=== PATIENT | male | born 1985 | race Caucasian/White ===

== ENCOUNTER 2017-01-10 16:21 | Emergency (ER) | payer OTHER ==
--- NOTE | 2017-01-10 17:15 | DIAGNOSTIC IMAGING REPORT ---
PROCEDURE: XR CHEST 2 VIEW INDICATION: CHEST PAIN TECHNIQUE: PA and lateral views. COMPARISON: None. FINDINGS: Allowing for overlying wires and electrodes, lungs are clear. Heart and mediastinum are normal. Thorax is normal. IMPRESSION: 1. Negative chest.
--- NOTE | 2017-01-10 17:43 | ED ORDER SUMMARY ---
..... Patient: DANIELLE LEUNG OrderSheet [facility] VisitID: [id number] [address] [place] [address] 31y, M Registration Date/Time: 01/10/2017 ORDER SHEET Weight: 86.1 kg (stated) Allergies: No Known Drug Allergy GENERAL ORDERS: Cardiac Panel Stat (16:51 01/10/2017 EBonham per protocol) (16:51 EBonham) EKG - ER Stat (16:51 01/10/2017 EBonham per protocol) (16:55 ALawrence ER Tech1) Chest 2V Urgent (17:00 01/10/2017 SThom A.R.N.P.) (Ack 17:01 ALawrence ER Tech1) (17:14 Delfino) Cardiac Panel Stat (17:00 01/10/2017 SThom A.R.N.P.) (Cancelled: Other17:00 SThom A.R.N.P.) TSH Urgent (17:00 01/10/2017 SThom A.R.N.P.) (Ack 17:01 ALawrence ER Tech1) (17:58 ALawrence ER Tech1) MEDICATION ORDERS: KCl PO 20 meq (NOW) (17:41 01/10/2017 SThom A.R.N.P.) (Cancelled: pt gone19:28 Lizy Zapien) IV FLUIDS: ORDER SHEET NOTES: [Electronically signed by Sally Torres R.N. (19:29 01/10/2017)] [Electronically signed by Coral Ramos A.R.N.P. (20:49 01/10/2017)] [Electronically locked/signed by Sally Torres R.N. (19:29 01/10/2017)]
--- NOTE | 2017-01-10 17:43 | ED CLINICAL REPORT ---
Clinical Report - Physicians/Mid Levels [facility] [address] [place] [address] 01/10/2017 16:23 Patient: DANIELLE LEUNG Time Seen: 16:53. Arrived- By private vehicle. Historian- patient. HISTORY OF PRESENT ILLNESS Chief Complaint: CHEST DISCOMFORT. Modifying factors. Not worsened by anything. Not relieved by anything. It is described as pressure. No radiation. This started episode 1 week ago-resolved, happened again today; Made appt w/ PCP -01/18 and is now gone. No nausea, vomiting or difficulty breathing. Similar symptoms previously: Once. Recent medical care: Not recently seen/assessed. REVIEW OF SYSTEMS No fever, chills, cough, calf pain or abdominal pain. PAST HISTORY See nurses notes. Hx of aortic disease (aneurysm or dissection, sounds like) in father (cause of ) and uncle (A&W). No history of coronary artery disease, heart disease, lung disease, hypertension or hyperlipidemia. No history of diabetes mellitus. SOCIAL HISTORY Former smoker. Occasional alcohol use. History of occasional drug use: marijuana. ADDITIONAL NOTES The nursing notes have been reviewed. PHYSICAL EXAM Vital Signs: 01/10/2017 18:00 BP: 131/75. HR: 77. RR: 20. O2 saturation: 100%. Pain level now: 0/10. 01/10/2017 16:28 BP: 145/83. HR: 90. RR: 22. O2 saturation: 100%. Temp: 97.9 F. Pain level now: 2/10. Have been reviewed and appear to be correct. Appearance: Alert. Oriented X3. No acute distress. Eyes: Pupils equal, round and reactive to light. Eyes normal inspection. Neck: Normal inspection. Neck supple. CVS: Normal heart rate and rhythm. Heart sounds normal. Respiratory: No respiratory distress. Breath sounds normal. Chest nontender. Abdomen: Soft and nontender. Skin: Skin warm and dry. Normal skin color. Normal skin turgor. Extremities: Extremities exhibit normal ROM. No lower extremity edema. Neuro: Oriented X 3. LABS, X-RAYS, AND EKG EKG: Normal EKG. Laboratory Tests: Laboratory tests have been ordered, with results reviewed and considered in the medical decision making process. CBC w Diff: (CATE: 01/10/2017 16:38) ( [facility] 01/10/2017 17:06) Final results Test Result Flag Units (Reference) WHITE BLOOD COUNT 10.4 K/uL (4.5-11.5) RED BLOOD COUNT 4.90 M/uL (4.50-5.90) HEMOGLOBIN 15.4 gm/dL (13.5-17.5) HEMATOCRIT 45.0 % (41.0-53.0) MEAN CELL VOLUME 92 fL (80-100) MEAN CORPUSCULAR HGB 32 pg (26-34) MEAN CORPUSCULAR HGB CONC 34 g/dL (31-37) RED CELL DISTRIBUTION WIDTH 13.4 % (11.6-14.8) PLATELET COUNT 265 K/uL (150-400) NEUTROPHIL % 55.0 % (50-75) LYMPH % 36.0 % (25-40) MONO % 7.2 % (3-14) EOSINOPHIL % 1.4 % (0-4) BASOPHIL % 0.4 % (0-2) TSH: (CATE: 01/10/2017 16:38) ( [facility] 01/10/2017 17:29) Final results Test Result Flag Units (Reference) THYROID STIMULATING HORMONE 1.953 uIU/mL (0.34-3.74) CHEM 13 PANEL: (CATE: 01/10/2017 16:38) ( [facility] 01/10/2017 17:27) Final results Test Result Flag Units (Reference) GLUCOSE 105 mg/dL (70-110) BUN 17 mg/dL (7-18) CREATININE 1.0 mg/dL (0.6-1.3) Estimated GFR >60 mL/min Estimated GFR- >60 mL/min Note: Persistent reduction over 3 months in eGFR<60 mL/min/1.73 m2 defines CKD. Patients with eGFR values>=60 mL/min/1.73 m2 may also have CKD if evidence ofpersistent proteinuria. Additional information may be foundat www.kidney.org. SODIUM 140 mmol/L (136-145) POTASSIUM 3.3 L mmol/L (3.5-5.1) CHLORIDE 101 mmol/L (98-107) CARBON DIOXIDE 27 mmol/L (21-32) CALCIUM 8.8 mg/dL (8.5-10.1) TOTAL PROTEIN 7.9 g/dL (6.4-8.2) ALBUMIN 4.4 g/dL (3.3-5.0) BILIRUBIN, TOTAL 0.5 mg/dL (0.0-1.0) ALKALINE PHOSPHATASE 63 U/L (46-116) AST (SGOT) 19 U/L (15-37) ALT (SGPT) 45 U/L (12-78) MAGNESIUM 2.1 mg/dL (1.8-2.4) CPK 131 U/L (24-260) TROPONIN I 0.08 ng/mL (0.00-1.5) TROPONIN REFERENCE RANGE:<0.1 NEGATIVE0.1-1.5 INDETERMINANT>1.5 POSITIVE . Note - Tests: (rev w/ DAYO Godwin). PROGRESS AND PROCEDURES Course of Care: Reassuring exam, EKG,labs. Patient has followup available. Given family hx, needs echo and cardio consult for sure. Feels comfortable with workup and plan. Patient is stable. Symptoms better. Patient counseled in person regarding the patient's condition, test results, normal exam, diagnosis and need for additional testing and follow-up. Disposition: Discharged. Condition: stable. CLINICAL IMPRESSION Chest pain. Palpitations Hypokalemia. INSTRUCTIONS Avoid stimulants (such as cigarettes, coffee, cold medicines, sinus medicines, street drugs). (Workup today is all reassuring. Advise that you increase dietary potassium amd ask your PCP to recheck the level when you go in. Consider heart monitor and echo-PCP may be willing to order before specialist consult). Warnings: GENERAL WARNINGS: Return or contact your physician immediately if your condition worsens or changes unexpectedly, if not improving as expected, or if other problems arise. Follow-up: Follow up with a speech professor- as recommended by your primary care physician. Follow up with your doctor as scheduled. Understanding of the discharge instructions verbalized by patient. (Electronically signed by Coral Ramos A.R.N.P. 01/10/2017 20:49)
--- NOTE | 2017-01-10 17:43 | ED NURSING NOTES ---
Clinical Report - Nurses [facility] [address] [place] [address] 01/10/2017 16:23 Patient: DANIELLE LEUNG TRIAGE Triage time 16:28. Acuity: LEVEL 3. Chief Complaint: CHEST PAIN. Alert. No acute distress. ESTHER COMA SCORE: Esther Coma Scale: 15- eyes open spontaneously (4); best verbal response- oriented x 4 (5); best motor response- obeys commands (6). --16:36 Sally Torres R.N. 16:28 01/10/17. BP: 145/83. HR: 90. RR: 22. O2 saturation: 100% on room air. Temp: 97.9 F (oral). Pain level now: 2/10. --16:36 Sally Torres R.N. Weight: 86.1 kg stated. Height/Length: 73 inches Per Patient. BMI: 25. --16:32 Sally Torres R.N. Medications None. --16:31 Sally Torres R.N. Medication/allergy information source: the patient. --16:36 Sally Torres R.N. Allergies No Known Drug Allergy. --16:31 Sally Torres R.N. History Arrived by private vehicle. Historian: patient. Unaccompanied. Primary physician (someone at Clinic). Onset. (was tired on Sunday, noticed "pressure" earlier today). Describes the quality as pressure and (constant). Relates location as in the central chest area. Notes pain level as 2/10 on arrival. Provoking / relieving factors: not worsened by anything. Relieved by nothing. ( last he had and episode of being very tired, then felt some "palpitations" for about 3-5 minutes (pt timed his heartrate during the palpitations and it was about 150 bpm), then he was better). The patient has had difficulty breathing. No sweating episodes or nausea. SOCIAL HX: Former smoker. Occasional alcohol use. History of occasional drug use: marijuana. FALL RISK ASSESSMENT: Fall risk assessment completed. No fall risk identified. FUNCTIONAL ASSESSMENT: Functional assessment: no impairments noted. LEARNING NEEDS ASSESSMENT: The learning needs assessment revealed no barriers. --16:36 Sally Torres R.N. PROBLEMS: Laceration. --16:32 Sally Torres R.N. ADDITIONAL SURGERIES: no known surgeries. Assessment GENERAL / NEURO / PSYCH: Alert. Oriented X 4. Appears in no acute distress. Patient appears calm and cooperative. RESPIRATORY: Respirations not labored. CVS: Cardiac rhythm: sinus rhythm. SKIN: Skin is warm and dry. --16:36 Sally Torres R.N. Interventions ID band on patient. To treatment room. --16:36 Sally oTrres R.N. PHYSICAL ASSESSMENT 16:38 01/10/17. Ambulatory to room. Patient gowned. GENERAL / NEURO / PSYCH: Alert. Oriented X 4. Appears in no acute distress. RESPIRATORY: Respirations not labored. CVS: Cardiac rhythm: sinus rhythm. SKIN: Skin is warm and dry. --16:38 Sally Torres R.N. NURSING PROGRESS NOTES 16:38 01/10/17. monitor technician, pulse oximeter and NIBP monitor placed on patient. Patient gowned. Head of bed elevated. Call light placed in reach. Side rails up x 1. Bed placed in lowest position. Brakes of bed on. --16:38 Sally Torres R.N. 16:41 01/10/2017 Site #1 started via IV in the left antecubital space with an 20g angiocath, with aseptic technique and good blood return; one attempt. Blood drawn: rainbow set. Labeled in the presence of the patient and sent to the lab. Saline lock flushed with 10 mL saline. --16:41 Jacque Goncalves EKG time: (2396). EKG was performed by a gorge and shown to the ED physician. --16:45 Rosita Key ER Tech1 <<PATEL ENTRY-- 17:31 01/10/2017 Site #1 removed upon discharge. --17:31 Jacque Goncalves --END STRIKE>> Charted on wrong patient. --17:36 Jacque Goncalves 18:00. Cardiac rhythm: sinus rhythm. The patient is calm and resting quietly. Overall patient status is improved- he states feels better. RESPIRATORY: No respiratory distress. SKIN: Skin is warm and dry. --19:28 Sally Torres R.N. DISPOSITION / DISCHARGE <<STRICKEN ENTRY-- Departure time: 1730. The patient left the Emergency Department without being seen by a physician and completion of treatment and against medical advice; patient was unaccompanied. The patient appears to be alert, coherent, uncooperative and using abusive language. The patient notified the ED staff prior to leaving the department. Notified the ED physician and charge nurse of patient departure. Prior to leaving the ED, he was advised to stay for completion of treatment and return if needed. He was informed of the risks of leaving and verbalized understanding of these risks. Patient signed form prior to leaving. He left the Emergency Department ambulatory. --17:33 Jacque Goncalves --END STRIKE>> Charted On Wrong Patient --17:38 Jacque Goncalves 18:00 01/10/2017 Site #1 removed upon discharge. Catheter intact. Bandaid applied. --19:26 Sally Torres R.N. Departure time: 1800. Condition at departure: stable. No learning barriers present. Discharge instructions provided and reviewed with the patient. Patient verbalized understanding. Written instructions provided in Maltese. The patient was discharged home and accompanied by spouse. He left the Emergency Department ambulatory and via private vehicle. FALL RISK ASSESSMENT: Fall risk assessment completed. No fall risk identified. --19:27 Sally Torres R.N. 18:00 01/10/17. BP: 131/75. HR: 77. RR: 20. O2 saturation: 100% on room air. Pain level now: 0/10. --19:27 Sally Torres R.N. Locked/Released at 01/10/2017 19:29 by Sally Torres R.N.
--- NOTE | 2017-01-10 17:43 | ED NURSING NOTES ---
Clinical Report - Nurses [facility] [address] [place] [address] 01/10/2017 16:23 Patient: DANIELLE LEUNG TRIAGE Triage time 16:28. Acuity: LEVEL 3. Chief Complaint: CHEST PAIN. Alert. No acute distress. ESTHER COMA SCORE: Esther Coma Scale: 15- eyes open spontaneously (4); best verbal response- oriented x 4 (5); best motor response- obeys commands (6). --16:36 Sally Torres R.N. 16:28 01/10/17. BP: 145/83. HR: 90. RR: 22. O2 saturation: 100% on room air. Temp: 97.9 F (oral). Pain level now: 2/10. --16:36 Sally Torres R.N. Weight: 86.1 kg stated. Height/Length: 73 inches Per Patient. BMI: 25. --16:32 Sally Torres R.N. Medications None. --16:31 Sally Torres R.N. Medication/allergy information source: the patient. --16:36 Sally Torres R.N. Allergies No Known Drug Allergy. --16:31 Sally Torres R.N. History Arrived by private vehicle. Historian: patient. Unaccompanied. Primary physician (someone at Clinic). Onset. (was tired on Sunday, noticed "pressure" earlier today). Describes the quality as pressure and (constant). Relates location as in the central chest area. Notes pain level as 2/10 on arrival. Provoking / relieving factors: not worsened by anything. Relieved by nothing. ( last he had and episode of being very tired, then felt some "palpitations" for about 3-5 minutes (pt timed his heartrate during the palpitations and it was about 150 bpm), then he was better). The patient has had difficulty breathing. No sweating episodes or nausea. SOCIAL HX: Former smoker. Occasional alcohol use. History of occasional drug use: marijuana. FALL RISK ASSESSMENT: Fall risk assessment completed. No fall risk identified. FUNCTIONAL ASSESSMENT: Functional assessment: no impairments noted. LEARNING NEEDS ASSESSMENT: The learning needs assessment revealed no barriers. --16:36 Sally Torres R.N. PROBLEMS: Laceration. --16:32 Sally Torres R.N. ADDITIONAL SURGERIES: no known surgeries. Assessment GENERAL / NEURO / PSYCH: Alert. Oriented X 4. Appears in no acute distress. Patient appears calm and cooperative. RESPIRATORY: Respirations not labored. CVS: Cardiac rhythm: sinus rhythm. SKIN: Skin is warm and dry. --16:36 Sally Torres R.N. Interventions ID band on patient. To treatment room. --16:36 Sally Torres R.N. PHYSICAL ASSESSMENT 16:38 01/10/17. Ambulatory to room. Patient gowned. GENERAL / NEURO / PSYCH: Alert. Oriented X 4. Appears in no acute distress. RESPIRATORY: Respirations not labored. CVS: Cardiac rhythm: sinus rhythm. SKIN: Skin is warm and dry. --16:38 Sally Torres R.N. NURSING PROGRESS NOTES 16:38 01/10/17. clinical massage therapist, pulse oximeter and NIBP monitor placed on patient. Patient gowned. Head of bed elevated. Call light placed in reach. Side rails up x 1. Bed placed in lowest position. Brakes of bed on. --16:38 Sally Torres R.N. 16:41 01/10/2017 Site #1 started via IV in the left antecubital space with an 20g angiocath, with aseptic technique and good blood return; one attempt. Blood drawn: rainbow set. Labeled in the presence of the patient and sent to the lab. Saline lock flushed with 10 mL saline. --16:41 Jacque Goncalves EKG time: (9456). EKG was performed by a gorge and shown to the ED physician. --16:45 Rosita Key ER Tech1 <<PATEL ENTRY-- 17:31 01/10/2017 Site #1 removed upon discharge. --17:31 Jacque Goncalves --END STRIKE>> Charted on wrong patient. --17:36 Jacque Goncalves 18:00. Cardiac rhythm: sinus rhythm. The patient is calm and resting quietly. Overall patient status is improved- he states feels better. RESPIRATORY: No respiratory distress. SKIN: Skin is warm and dry. --19:28 Sally Torres R.N. DISPOSITION / DISCHARGE <<STRICKEN ENTRY-- Departure time: 1730. The patient left the Emergency Department without being seen by a physician and completion of treatment and against medical advice; patient was unaccompanied. The patient appears to be alert, coherent, uncooperative and using abusive language. The patient notified the ED staff prior to leaving the department. Notified the ED physician and charge nurse of patient departure. Prior to leaving the ED, he was advised to stay for completion of treatment and return if needed. He was informed of the risks of leaving and verbalized understanding of these risks. Patient signed form prior to leaving. He left the Emergency Department ambulatory. --17:33 Jacque Goncalves --END STRIKE>> Charted On Wrong Patient --17:38 Jacque Goncalves 18:00 01/10/2017 Site #1 removed upon discharge. Catheter intact. Bandaid applied. --19:26 Sally Torres R.N. Departure time: 1800. Condition at departure: stable. No learning barriers present. Discharge instructions provided and reviewed with the patient. Patient verbalized understanding. Written instructions provided in Turkmen. The patient was discharged home and accompanied by spouse. He left the Emergency Department ambulatory and via private vehicle. FALL RISK ASSESSMENT: Fall risk assessment completed. No fall risk identified. --19:27 Sally Torres R.N. 18:00 01/10/17. BP: 131/75. HR: 77. RR: 20. O2 saturation: 100% on room air. Pain level now: 0/10. --19:27 Sally Torres R.N. Locked/Released at 01/10/2017 19:29 by Sally Torres R.N.
--- NOTE | 2017-01-10 17:43 | ED ORDER SUMMARY ---
..... Patient: DANIELLE LEUNG OrderSheet [facility] VisitID: [id number] [address] [place] [address] 31y, M Registration Date/Time: 01/10/2017 ORDER SHEET Weight: 86.1 kg (stated) Allergies: No Known Drug Allergy GENERAL ORDERS: Cardiac Panel Stat (16:51 01/10/2017 EBonham per protocol) (16:51 EBonham) EKG - ER Stat (16:51 01/10/2017 EBonham per protocol) (16:55 ALawrence ER Tech1) Chest 2V Urgent (17:00 01/10/2017 SThom A.R.N.P.) (Ack 17:01 ALawrence ER Tech1) (17:14 Delfino) Cardiac Panel Stat (17:00 01/10/2017 SThom A.R.N.P.) (Cancelled: Other17:00 SThom A.R.N.P.) TSH Urgent (17:00 01/10/2017 SThom A.R.N.P.) (Ack 17:01 ALawrence ER Tech1) (17:58 ALawrence ER Tech1) MEDICATION ORDERS: KCl PO 20 meq (NOW) (17:41 01/10/2017 SThom A.R.N.P.) (Cancelled: pt gone19:28 Lizy Zapien) IV FLUIDS: ORDER SHEET NOTES: [Electronically signed by Sally Torres R.N. (19:29 01/10/2017)] [Electronically signed by Coral Ramos A.R.N.P. (20:49 01/10/2017)] [Electronically locked/signed by Sally Torres R.N. (19:29 01/10/2017)]
--- NOTE | 2017-01-10 17:43 | ED CLINICAL REPORT ---
Clinical Report - Physicians/Mid Levels [facility] [address] [place] [address] 01/10/2017 16:23 Patient: DANIELLE LEUNG Time Seen: 16:53. Arrived- By private vehicle. Historian- patient. HISTORY OF PRESENT ILLNESS Chief Complaint: CHEST DISCOMFORT. Modifying factors. Not worsened by anything. Not relieved by anything. It is described as pressure. No radiation. This started episode 1 week ago-resolved, happened again today; Made appt w/ PCP -01/18 and is now gone. No nausea, vomiting or difficulty breathing. Similar symptoms previously: Once. Recent medical care: Not recently seen/assessed. REVIEW OF SYSTEMS No fever, chills, cough, calf pain or abdominal pain. PAST HISTORY See nurses notes. Hx of aortic disease (aneurysm or dissection, sounds like) in father (cause of ) and uncle (A&W). No history of coronary artery disease, heart disease, lung disease, hypertension or hyperlipidemia. No history of diabetes mellitus. SOCIAL HISTORY Former smoker. Occasional alcohol use. History of occasional drug use: marijuana. ADDITIONAL NOTES The nursing notes have been reviewed. PHYSICAL EXAM Vital Signs: 01/10/2017 18:00 BP: 131/75. HR: 77. RR: 20. O2 saturation: 100%. Pain level now: 0/10. 01/10/2017 16:28 BP: 145/83. HR: 90. RR: 22. O2 saturation: 100%. Temp: 97.9 F. Pain level now: 2/10. Have been reviewed and appear to be correct. Appearance: Alert. Oriented X3. No acute distress. Eyes: Pupils equal, round and reactive to light. Eyes normal inspection. Neck: Normal inspection. Neck supple. CVS: Normal heart rate and rhythm. Heart sounds normal. Respiratory: No respiratory distress. Breath sounds normal. Chest nontender. Abdomen: Soft and nontender. Skin: Skin warm and dry. Normal skin color. Normal skin turgor. Extremities: Extremities exhibit normal ROM. No lower extremity edema. Neuro: Oriented X 3. LABS, X-RAYS, AND EKG EKG: Normal EKG. Laboratory Tests: Laboratory tests have been ordered, with results reviewed and considered in the medical decision making process. CBC w Diff: (CATE: 01/10/2017 16:38) ( [facility] 01/10/2017 17:06) Final results Test Result Flag Units (Reference) WHITE BLOOD COUNT 10.4 K/uL (4.5-11.5) RED BLOOD COUNT 4.90 M/uL (4.50-5.90) HEMOGLOBIN 15.4 gm/dL (13.5-17.5) HEMATOCRIT 45.0 % (41.0-53.0) MEAN CELL VOLUME 92 fL (80-100) MEAN CORPUSCULAR HGB 32 pg (26-34) MEAN CORPUSCULAR HGB CONC 34 g/dL (31-37) RED CELL DISTRIBUTION WIDTH 13.4 % (11.6-14.8) PLATELET COUNT 265 K/uL (150-400) NEUTROPHIL % 55.0 % (50-75) LYMPH % 36.0 % (25-40) MONO % 7.2 % (3-14) EOSINOPHIL % 1.4 % (0-4) BASOPHIL % 0.4 % (0-2) TSH: (CATE: 01/10/2017 16:38) ( [facility] 01/10/2017 17:29) Final results Test Result Flag Units (Reference) THYROID STIMULATING HORMONE 1.953 uIU/mL (0.34-3.74) CHEM 13 PANEL: (CATE: 01/10/2017 16:38) ( [facility] 01/10/2017 17:27) Final results Test Result Flag Units (Reference) GLUCOSE 105 mg/dL (70-110) BUN 17 mg/dL (7-18) CREATININE 1.0 mg/dL (0.6-1.3) Estimated GFR >60 mL/min Estimated GFR- >60 mL/min Note: Persistent reduction over 3 months in eGFR<60 mL/min/1.73 m2 defines CKD. Patients with eGFR values>=60 mL/min/1.73 m2 may also have CKD if evidence ofpersistent proteinuria. Additional information may be foundat www.kidney.org. SODIUM 140 mmol/L (136-145) POTASSIUM 3.3 L mmol/L (3.5-5.1) CHLORIDE 101 mmol/L (98-107) CARBON DIOXIDE 27 mmol/L (21-32) CALCIUM 8.8 mg/dL (8.5-10.1) TOTAL PROTEIN 7.9 g/dL (6.4-8.2) ALBUMIN 4.4 g/dL (3.3-5.0) BILIRUBIN, TOTAL 0.5 mg/dL (0.0-1.0) ALKALINE PHOSPHATASE 63 U/L (46-116) AST (SGOT) 19 U/L (15-37) ALT (SGPT) 45 U/L (12-78) MAGNESIUM 2.1 mg/dL (1.8-2.4) CPK 131 U/L (24-260) TROPONIN I 0.08 ng/mL (0.00-1.5) TROPONIN REFERENCE RANGE:<0.1 NEGATIVE0.1-1.5 INDETERMINANT>1.5 POSITIVE . Note - Tests: (rev w/ DAYO Godwin). PROGRESS AND PROCEDURES Course of Care: Reassuring exam, EKG,labs. Patient has followup available. Given family hx, needs echo and cardio consult for sure. Feels comfortable with workup and plan. Patient is stable. Symptoms better. Patient counseled in person regarding the patient's condition, test results, normal exam, diagnosis and need for additional testing and follow-up. Disposition: Discharged. Condition: stable. CLINICAL IMPRESSION Chest pain. Palpitations Hypokalemia. INSTRUCTIONS Avoid stimulants (such as cigarettes, coffee, cold medicines, sinus medicines, street drugs). (Workup today is all reassuring. Advise that you increase dietary potassium amd ask your PCP to recheck the level when you go in. Consider heart monitor and echo-PCP may be willing to order before specialist consult). Warnings: GENERAL WARNINGS: Return or contact your physician immediately if your condition worsens or changes unexpectedly, if not improving as expected, or if other problems arise. Follow-up: Follow up with a offline cutter- as recommended by your primary care physician. Follow up with your doctor as scheduled. Understanding of the discharge instructions verbalized by patient. (Electronically signed by Coral Ramos A.R.N.P. 01/10/2017 20:49)
--- NOTE | 2017-01-10 20:49 | ED MAR SUMMARY ---
..... Medication Administration Record [facility] [address] [id number] Patient: DANIELLE LEUNG Visit ID: [id number] 31y, M Weight: 86.1 kg Height/Length: 73 in BMI: 25 ALLERGIES: No Known Drug Allergy
--- NOTE | 2017-01-10 20:49 | ED DISCHARGE INSTRUCTIONS ---
Patient: DANIELLE LEUNG General Instructions [facility] VisitID: [id number] [place] [address] 31y, M Registration Date/Time: 01/10/2017 Chest pain. Palpitations Hypokalemia. INSTRUCTIONS Avoid stimulants (such as cigarettes, coffee, cold medicines, sinus medicines, street drugs). (Workup today is all reassuring. Advise that you increase dietary potassium amd ask your PCP to recheck the level when you go in. Consider heart monitor and echo-PCP may be willing to order before specialist consult). Warnings: GENERAL WARNINGS: Return or contact your physician immediately if your condition worsens or changes unexpectedly, if not improving as expected, or if other problems arise. Follow-up: Follow up with a ldr rn- as recommended by your primary care physician. Follow up with your doctor as scheduled. Understanding of the discharge instructions verbalized by patient. ADDITIONAL INFORMATION Chest Pain, Uncertain Cause Chest pain can happen for a number of reasons. Sometimes the cause can not be determined. If yourcondition does not seem serious, and your pain does not appear to be coming from your heart, your doctor may recommend watching it closely. Sometimes the signs of a serious problem take more time to appear. Therefore, watch for the warning signs listed below. Home care After your visit, follow these recommendations: Rest today and avoid strenuous activity. Take any prescribed medicine as directed. Follow-up care Follow up with your doctor or this facility as instructed or if you do not start to feel better within 24 hours. Call 911 Get immediate medical attention if any of the following occur: A change in the type of pain: if it feels different, becomes more severe, lasts longer, or begins to spread into your shoulder, arm, neck, jaw or back Shortness of breath or increased pain with breathing Weakness, dizziness, or fainting Rapid heart beat Get prompt medical attention Call your doctor right away if any of the following occur: Cough with dark colored sputum (phlegm) or blood Fever of 100.4F(38C) or higher, or as directed by your health care provider Swelling, pain or redness in one leg Hypokalemia Hypokalemia means a low level of potassium in the blood. This most often occurs in patients who take diuretics (water pills). It can also occur due to severe vomiting or diarrhea. A mild case usually causes no symptoms. It is only found with blood testing. More severe potassium loss causes generalized weakness, muscle or abdominal cramping, heart palpitations (rapid or irregular heartbeats) and low blood pressure. Home Care: 1) Take any potassium supplements prescribed. 2) Eat foods rich in potassium. The highest amount is found in artichoke, baked potatoes, spinach, cantaloupe, honeydew melon, cod, halibut, salmon, and scallops. White, red, or louis beans are also very good sources. A modest amount is found in orange juice, bananas, carrots, and tomato juice. 3) Certain types of diuretics (water pills), such as Lasix (furosemide), require that you take potassium supplements for as long as you take the diuretic pills. If you are taking a diuretic, discuss the need for potassium supplements with your doctor. Follow Up with your doctor for a repeat blood test within the next week or as advised by our staff. Get Prompt Medical Attention if any of the following occur: -- Increased weakness -- Feeling dizzy -- Irregular heartbeat, extra beats or very fast heart rate -- Fainting spell Heart Palpitations Palpitations refers to the feeling that your heart is beating hard, fast or irregular. Some people describe it as "pounding" or "skipped beats". Palpitations may occur in persons with heart disease, but can also occur in healthy persons. Heart-Related Causes: Arrhythmia (a change from the heart's normal rhythm) Disease of the heart valves Iol-Tayar-Tizazqs Causes: Certain medicines (such as asthma inhalers and decongestants) Some herbal supplements, energy drinks and pills, and weight loss pills Illegal stimulant drugs (such as cocaine, crank, methamphetamine, PCP) Caffeine, alcohol and tobacco Medical conditions such as thyroid disease, anemia, anxiety and panic disorder Sometimes the cause cannot be found. Home Care: Avoid excess caffeine, alcohol, tobacco and any stimulant drugs. Tell your doctor about any prescription or ecmf-vht-qyaxmli or herbal medicines you take. Follow Up with your doctor or as advised by our staff. Get Prompt Medical Attention if any of the following occur together with palpitations: Weakness, dizziness, light-headed or fainting Chest pain or shortness of breath Rapid heart rate (over 120 beats per minute, at rest) Palpitations that lasts over 20 minutes Weakness of an arm or leg or one side of the face Difficulty with speech or vision You have been given the following additional information: Chest Pain, Uncertain Cause Hypokalemia Palpitations (Electronically signed by Coral Ramos A.R.N.P. 01/10/2017 20:49)
--- NOTE | 2017-01-10 20:49 | ED MAR SUMMARY ---
..... Medication Administration Record [facility] [address] [place], [place] [id number] Patient: DANIELLE LEUNG Visit ID: [id number] 31y, M Weight: 86.1 kg Height/Length: 73 in BMI: 25 ALLERGIES: No Known Drug Allergy
--- NOTE | 2017-01-10 20:49 | ED DISCHARGE INSTRUCTIONS ---
Patient: DANIELLE LEUNG General Instructions [facility] VisitID: [id number] [place] [address] 31y, M Registration Date/Time: 01/10/2017 Chest pain. Palpitations Hypokalemia. INSTRUCTIONS Avoid stimulants (such as cigarettes, coffee, cold medicines, sinus medicines, street drugs). (Workup today is all reassuring. Advise that you increase dietary potassium amd ask your PCP to recheck the level when you go in. Consider heart monitor and echo-PCP may be willing to order before specialist consult). Warnings: GENERAL WARNINGS: Return or contact your physician immediately if your condition worsens or changes unexpectedly, if not improving as expected, or if other problems arise. Follow-up: Follow up with a agitator operator- as recommended by your primary care physician. Follow up with your doctor as scheduled. Understanding of the discharge instructions verbalized by patient. ADDITIONAL INFORMATION Chest Pain, Uncertain Cause Chest pain can happen for a number of reasons. Sometimes the cause can not be determined. If yourcondition does not seem serious, and your pain does not appear to be coming from your heart, your doctor may recommend watching it closely. Sometimes the signs of a serious problem take more time to appear. Therefore, watch for the warning signs listed below. Home care After your visit, follow these recommendations: Rest today and avoid strenuous activity. Take any prescribed medicine as directed. Follow-up care Follow up with your doctor or this facility as instructed or if you do not start to feel better within 24 hours. Call 911 Get immediate medical attention if any of the following occur: A change in the type of pain: if it feels different, becomes more severe, lasts longer, or begins to spread into your shoulder, arm, neck, jaw or back Shortness of breath or increased pain with breathing Weakness, dizziness, or fainting Rapid heart beat Get prompt medical attention Call your doctor right away if any of the following occur: Cough with dark colored sputum (phlegm) or blood Fever of 100.4F(38C) or higher, or as directed by your health care provider Swelling, pain or redness in one leg Hypokalemia Hypokalemia means a low level of potassium in the blood. This most often occurs in patients who take diuretics (water pills). It can also occur due to severe vomiting or diarrhea. A mild case usually causes no symptoms. It is only found with blood testing. More severe potassium loss causes generalized weakness, muscle or abdominal cramping, heart palpitations (rapid or irregular heartbeats) and low blood pressure. Home Care: 1) Take any potassium supplements prescribed. 2) Eat foods rich in potassium. The highest amount is found in artichoke, baked potatoes, spinach, cantaloupe, honeydew melon, cod, halibut, salmon, and scallops. White, red, or louis beans are also very good sources. A modest amount is found in orange juice, bananas, carrots, and tomato juice. 3) Certain types of diuretics (water pills), such as Lasix (furosemide), require that you take potassium supplements for as long as you take the diuretic pills. If you are taking a diuretic, discuss the need for potassium supplements with your doctor. Follow Up with your doctor for a repeat blood test within the next week or as advised by our staff. Get Prompt Medical Attention if any of the following occur: -- Increased weakness -- Feeling dizzy -- Irregular heartbeat, extra beats or very fast heart rate -- Fainting spell Heart Palpitations Palpitations refers to the feeling that your heart is beating hard, fast or irregular. Some people describe it as "pounding" or "skipped beats". Palpitations may occur in persons with heart disease, but can also occur in healthy persons. Heart-Related Causes: Arrhythmia (a change from the heart's normal rhythm) Disease of the heart valves Anl-Vpkgb-Dyezyrx Causes: Certain medicines (such as asthma inhalers and decongestants) Some herbal supplements, energy drinks and pills, and weight loss pills Illegal stimulant drugs (such as cocaine, crank, methamphetamine, PCP) Caffeine, alcohol and tobacco Medical conditions such as thyroid disease, anemia, anxiety and panic disorder Sometimes the cause cannot be found. Home Care: Avoid excess caffeine, alcohol, tobacco and any stimulant drugs. Tell your doctor about any prescription or fzkd-avs-twnacrf or herbal medicines you take. Follow Up with your doctor or as advised by our staff. Get Prompt Medical Attention if any of the following occur together with palpitations: Weakness, dizziness, light-headed or fainting Chest pain or shortness of breath Rapid heart rate (over 120 beats per minute, at rest) Palpitations that lasts over 20 minutes Weakness of an arm or leg or one side of the face Difficulty with speech or vision You have been given the following additional information: Chest Pain, Uncertain Cause Hypokalemia Palpitations (Electronically signed by Coral Ramos A.R.N.P. 01/10/2017 20:49)
--- NOTE | 2017-01-10 20:49 | ED MED RECONCILIATION SUMMARY ---
Patient: DANIELLE LEUNG Medication Reconciliation Report [facility] VisitID: [id number] [address] [place] [place] [address] 31y, M Registration Date/Time: 01/10/2017 Weight: 86.1 kg Height/Length: 73 in. BMI: 25.0 ALLERGIES: No Known Drug Allergy The patient's Home Medications are listed below: NONE. The source(s) of the original Home Medication information: patient The following Medications were given to the patient in the Emergency Department: None. The following Medications were prescribed to the patient: None.
--- NOTE | 2017-01-10 20:49 | ED MED RECONCILIATION SUMMARY ---
Patient: DANIELLE LEUNG Medication Reconciliation Report [facility] VisitID: [id number] [address] [place] [address] 31y, M Registration Date/Time: 01/10/2017 Weight: 86.1 kg Height/Length: 73 in. BMI: 25.0 ALLERGIES: No Known Drug Allergy The patient's Home Medications are listed below: NONE. The source(s) of the original Home Medication information: patient The following Medications were given to the patient in the Emergency Department: None. The following Medications were prescribed to the patient: None.
== END 2017-01-10 18:00 | disposition home or self-care (01) ==
LOC: ED SRH 16:21
DX: R07.9 Chest pain, unspecified (principal); R00.2 Palpitations; E87.6 Hypokalemia; F12.10 Cannabis abuse, uncomplicated; Z87.891 Personal history of nicotine dependence
CPT/HCPCS: 90100; 90616; 92610; 92720; 93140; 95059